=== PATIENT | female | born 1950 ===

== ENCOUNTER 2016-09-25 15:11 | Outpatient (CLI) | payer MEDICARE, OTHER ==
[2016-09-25 16:16] LABS: ALBUMIN/GLOBULIN RATIO 1.1 (1.0-2.2); BILIRUBIN,TOTAL 0.7 mg/dL (0.2-1.0); CALCIUM 9.5 mg/dL (8.5-10.3); POTASSIUM 4.7 mmol/L (3.5-5.0); TOTAL PROTEIN 7.8 g/dL (6.7-8.2)
== END 2016-09-25 15:12 | disposition home or self-care (01) ==
LOC: LAB 15:11
PROVIDERS: ATTEND Naturopath
DX: K51.80 Other ulcerative colitis without complications (principal)
CPT/HCPCS: 36415; 80053

== ENCOUNTER 2016-10-02 08:00 | Outpatient (CLI) | payer MEDICARE, OTHER | END 2016-10-02 08:01 | disposition home or self-care (01) | LOC: LAB.R 08:00 | PROVIDERS: ATTEND Naturopath | DX: K51.80 Other ulcerative colitis without complications (principal) | CPT/HCPCS: 83993 ==